=== PATIENT | female | born 1990 | race Caucasian/White ===

== ENCOUNTER 2017-02-22 03:06 | Inpatient (IN) | payer BC ==
[2017-02-22] MEDS ORDERED: RINGER'S SOLUTION,LACTATED 1,000 ML IV ONE (05:30)
[2017-02-22] MEDS ORDERED: OXYTOCIN/DEXTROSE 5%-WATER 30 UNITS/500 ML BAG IV ONE ×2 (05:30→13:34)
[2017-02-22] MEDS ORDERED: LIDOCAINE HCL 50 ML VIAL PERI PRN (05:30)
[2017-02-22] MEDS: DEXTROSE 5%-LACTATED RINGERS 1,000 ML IV PRN ×2 (06:10→07:16)
[2017-02-22] MEDS ORDERED: NALOXONE HCL 1 MG/1 ML SYRG IV PRN (06:16)
[2017-02-22] MEDS ORDERED: ONDANSETRON HCL/PF 2 MG/ML VIAL IV PRN (06:16)
[2017-02-22] MEDS ORDERED: BUPIVACAINE HCL/0.9 % NACL/PF 250 ML EP PRN (06:16)
[2017-02-22] MEDS ORDERED: fentaNYL CITRATE/PF 50 MCG/ML AMPUL IT SCH (06:30)
--- NOTE | 2017-02-22 07:12 | OR ---
Anesthesia Procedure Note - Anesthesia Procedure Note Narrative: Vital Signs - Last Taken Temp 36.9 C 02/22/17 06:42 Pulse 90 02/22/17 06:42 Resp 18 02/22/17 06:42 BP 137/85 02/22/17 06:42 Pulse Ox 100 02/22/17 06:42 02/22/17 07:11 ANESTHESIA PROCEDURE NOTE Date of Procedure: 02/22/2017 Time of procedure: . Performed by: Venkatesh Holland CRNA Fish Straightener: None. Preprocedure diagnosis: Active labor. Post procedure diagnosis: Same. Procedure: Insertion of labor epidural. Indications: The patient is a 27 -year-old prima para female in active labor requesting labor epidural for pain management. Findings: See below. Details of the procedure: The patient was placed in a sitting position. Back was prepped with DuraPrep. Patient was then draped in a sterile fashion. Lidocaine 1% was infiltrated to the skin and subcutaneous tissues at the level of the L3 4 interspace. The epidural space was identified using a 18-gauge Tuohy needle with [id number] technique. 20 mcg fentanyl was given intrathecally using a 27 ga. spinal needle. Epidural catheter was inserted without difficulty. Negative test dose was elicited using 5 mL of 1.5% preservative-free lidocaine plus epinephrine 1 200,000. The epidural catheter was then taped and secured in place. EBL: Minimal. Fluids: N/A. Specimen: N/A. Post procedure condition: The patient tolerated the procedure well. No complications were noted. Thank you for this consultation. Atkinson CRNA
[2017-02-22] MEDS ORDERED: BISACODYL 10 MG SUPP.RECT RC PRN (13:34)
[2017-02-22] MEDS ORDERED: oxyCODONE HCL/ACETAMINOPHEN 1 TAB TABLET PO PRN (13:34)
[2017-02-22] MEDS ORDERED: HYDROCORTISONE 30 APPL TUBE TP PRN (13:34)
[2017-02-22] MEDS ORDERED: SENNOSIDES 8.6 MG TABLET PO PRN (13:34)
[2017-02-22] MEDS ORDERED: BENZOCAINE/MENTHOL 81 SPRAY CAN TP PRN (13:34)
[2017-02-22] MEDS ORDERED: GLYCERIN/WITCH HAZEL LEAF 40 APPL BOX TP PRN (13:34)
--- NOTE | 2017-02-22 13:36 | OR ---
Operative Report - Dictated Report Narrative: Spontaneous vaginal delivery of viable male at 1304 on 02/22/2017 with Apgars 9 and 9, weighing 3339 g in MELYSSA position. Cord clamping delayed approximately 1 minute Placenta delivered complete, intact, with three vessel cord Estimated blood loss: 200 mL Lacerations: Second-degree vaginal laceration (5 cm) repaired with 3-0 Vicryl Rapide.
[2017-02-22] MEDS: oxyCODONE HCL/ACETAMINOPHEN 1 TAB TABLET PO PRN (16:59)
[2017-02-22] MEDS: IBUPROFEN 800 MG TABLET PO PRN (16:59)
[2017-02-22] MEDS: FERROUS SULFATE 325 MG TABLET PO SCH (20:44)
[2017-02-22] MEDS: DOCUSATE SODIUM 100 MG CAPSULE PO SCH (20:44)
[2017-02-23] MEDS: IBUPROFEN 800 MG TABLET PO PRN ×4 (01:14→22:48)
[2017-02-23] MEDS: oxyCODONE HCL/ACETAMINOPHEN 1 TAB TABLET PO PRN ×2 (01:15→22:48)
--- NOTE | 2017-02-23 08:46 | PN ---
Subjective - Date and Time Seen Date: 02/23/17 Time: 08:46 Objective - Vitals Vitals: Last Vital Signs Temp 36.6 C 02/23/17 07:57 Pulse 94 02/23/17 07:57 Resp 16 02/23/17 07:57 BP 108/65 02/23/17 07:57 Pulse Ox 96 02/23/17 07:57 Patient denies complaints. Lochia wnl Abdomen - soft, nontender Uterus - firm, at umbilicus - 1 No calf tenderness Impression: day #1 - s/p spontaneous vaginal delivery. Plan: Continue routine care
[2017-02-23] MEDS: DOCUSATE SODIUM 100 MG CAPSULE PO SCH ×2 (09:34→21:37)
[2017-02-23] MEDS: FERROUS SULFATE 325 MG TABLET PO SCH ×3 (09:34→21:36)
[2017-02-23] MEDS: PRENATAL VITS96/IRON FUM/FOLIC 1 TAB TABLET PO SCH (09:34)
[2017-02-24] MEDS: IBUPROFEN 800 MG TABLET PO PRN (07:01)
[2017-02-24 07:22] VITALS: BP 110/60
[2017-02-24] MEDS: PRENATAL VITS96/IRON FUM/FOLIC 1 TAB TABLET PO SCH (08:41)
[2017-02-24] MEDS: FERROUS SULFATE 325 MG TABLET PO SCH (08:41)
[2017-02-24] MEDS: DOCUSATE SODIUM 100 MG CAPSULE PO SCH (08:41)
--- NOTE | 2017-02-24 09:08 | PN ---
Subjective - Date and Time Seen Date: 02/24/17 Time: 09:07 Objective - Vitals Vitals: Last Vital Signs Temp 37.1 C 02/24/17 06:50 Pulse 81 02/24/17 06:50 Resp 18 02/24/17 06:50 BP 110/60 02/24/17 06:50 Pulse Ox 97 02/24/17 06:50 Patient denies complaints. Lochia wnl Abdomen - soft, nontender Uterus - firm, at umbilicus - 2 No calf tenderness Impression: day #2 - s/p spontaneous vaginal delivery. Plan: Routine discharge instructions
== END 2017-02-24 11:30 | disposition home or self-care (01) | DRG 775 ==
LOC: OBCLINIC 03:06 → OB 04:43 → MS 02-23 06:27
PROVIDERS: ADMIT Obstetrics & Gynecology; ATTEND Obstetrics & Gynecology
PROC: 10E0XZZ Delivery of Products of Conception, External Approach (ICD-10-PCS; principal; 2017-02-22)
PROC: 0KQM0ZZ Repair Perineum Muscle, Open Approach (ICD-10-PCS; 2017-02-22)
PROC: 4A1HXCZ Monitoring of Products of Conception, Cardiac Rate, External Approach (ICD-10-PCS; 2017-02-22)
PROC: 00HU33Z Insertion of Infusion Device into Spinal Canal, Percutaneous Approach (ICD-10-PCS; 2017-02-22)
DX: O99.02 Anemia complicating childbirth (principal); D50.8 Other iron deficiency anemias; O70.1 Second degree perineal laceration during delivery; Z3A.40 40 weeks gestation of pregnancy; Z37.0 Single live birth

== ENCOUNTER 2019-08-06 21:13 | Inpatient (IN) ==
[2019-08-06] MEDS ORDERED: LIDOCAINE HCL 50 ML VIAL ONE (21:46)
[2019-08-06] MEDS ORDERED: LIDOCAINE HCL 50 ML VIAL PERI PRN (22:13)
[2019-08-06] MEDS ORDERED: ONDANSETRON 4 MG TAB.RAPDIS PO PRN (22:13)
[2019-08-06] MEDS ORDERED: OXYTOCIN 10 UNITS/ML SYRG IM ONE (22:15)
--- NOTE | 2019-08-06 22:35 | HP ---
Chief Complaint - Chief Complaint Date of Service: 08/06/19 Time of Service: 22:17 Chief Complaint: contractions History of Present Illness: 29 yo at 37 4/7 weeks presents to L&D complaining of painful contractions since around 1999 tonight. This complicated by anemia and migraines. Rh positive Rubella immune GBS negative Medical History (Last Reviewed 08/06/19 @ 22:28 by Wan Allred DO) Anembryonic (Acute) Blighted ovum Onset Date: 06/30/18 Body piercing Onset Date: Unknown Migraine Onset Date: Unknown Wears glasses Onset Date: Unknown Acute pharyngitis due to infectious mononucleosis Onset Date: 07/27/09 Anemia Onset Date: 08/10/16 w/ Mononucleosis Onset Date: 07/22/09 Otitis media, purulent, acute Onset Date: 07/27/09 UTI (urinary tract infection) Onset Date: Unknown frequent for a 2-4 year time period Contraceptive surveillance Onset Date: 04/19/09 Surgical History: Surgical History (Last Reviewed 08/06/19 @ 22:28 by Wan Allred DO) [place] teeth extracted Onset Date: ~2009 Family History: Family History (Last Reviewed 08/06/19 @ 22:28 by Wan Allred DO) Mother Hx of migraines Father Alive and well Social History: (Last Reviewed 08/06/19 @ 22:28 by Wan Allred DO) Social History: adopted: No alf: No Marital status: household members: spouse, children number of children: 1 current occupational status: other current occupation: [employer] current occupational exposures/hazards: No Highest education level completed: Bachelor's degree Sexually Active: Yes Service: No Tobacco: Smoking Status: Never smoker Alcohol: alcohol intake: current alcohol intake frequency: holiday/special occasion details: No alcohol since + UPT Substance Use: substance use type: does not use Dietary Habits: caffeine: Yes caffeine comment: 1-2/day Type: coffee Exercise: frequency: other Andie/Voodoo: agree to transfusion: Yes Review Of Systems (GEN) - Review of Systems Generalized/Overall Review: Present: No Symptoms Reported EENTM: Present: No Symptoms Reported Respiratory: Present: No Symptoms Reported Cardiac: Present: No Symptoms Reported Genitourinary: Present: Other - contractions, LOF Musculoskeletal: Present: No Symptoms Reported Neurological: Present: No Symptoms Reported Skin: Present: No Symptoms Reported Endocrine: Present: No Symptoms Reported Allergies/Adverse Reactions: Allergies Allergy/AdvReac Type Severity Reaction Status Date / Time No Known Allergies Allergy Verified 08/01/19 14:31 Home Medications: HOME MEDICATIONS [id number] 400 mcg-om3 35 mg-dha 25 mg-epa 5 mg-fish oil chewable tablet 2 tab PO DAILY tab 06/30/18 [Last Taken Unknown] ferrous sulfate 325 mg (65 mg iron) tablet 325 mg PO DAILY 02/16/19 [Last Taken Unknown] magnesium 250 mg tablet 500 mg PO DAILY tab 02/16/19 [Last Taken Unknown] breast pump See Rx Instructions .ROUTE .MEDSUPPLY #1 ea 07/24/19 [Last Taken Unknown] Exam - Exam Vital Signs: Vital Signs - Last Taken Pulse 90 08/06/19 22:13 Resp 22 H 08/06/19 22:13 BP 128/92 H 08/06/19 22:13 Pulse Ox 100 08/06/19 22:13 Constitutional: Present: Alert, Oriented x3, Cooperative, Moderate distress ENT Exam: Present: hearing grossly normal Breasts: Present: Exam deferred Respiratory: Present: lungs clear, no respiratory distress Cardiovascular/Chest: Present: normal peripheral pulses, regular rate, rhythm, no edema Abdomen: Present: soft, no rebound tenderness, other - gravid /Rectal: Present: Other - Cervix - 7-8/95/-1 Extremity: Present: no pedal edema, no calf tenderness Skin Exam: Present: normal color, warm/dry, no cyanosis Neurologic: Present: normal mood/affect Appearance: Present: appropriate appearance Eye contact: Present: cooperative, good eye contact, increased rate of speech Thoughts: Present: normal thought pattern, normal mood /affect Assessment/Plan - Assessment/Plan (1) Labor established Assessment: Admitted for labor, quickly progressed to complete and delivered a viable healthy boy - see operative note for details. Routine PP management. Problem: Acute (2) Precipitate labor, with delivery Problem: Acute (3) Anemia Problem: Acute Qualifiers: Anemia type: iron deficiency Iron deficiency anemia type: inadequate dietary iron intake Qualified Code(s): D50.8 - Other iron deficiency anemias
--- NOTE | 2019-08-06 22:37 | OR ---
Operative Report - Dictated Report Narrative: Precipitous spontaneous vaginal delivery of vigorously crying viable male at 2137 on 08/06/2019 with Apgars 9 and 9, weighing 2951 g in MELYSSA position with membrane rupture (floor bag) at time of delivery of head. Cord clamping delayed approximately 1 minute Placenta delivered complete, intact, with three vessel cord Estimated blood loss: Less than 50 ml Anesthesia: 1% lidocaine local Lacerations: Second-degree vaginal laceration repaired with 3-0 Vicryl Rapide Because of precipitous labor/delivery, IV was not yet established so patient received 10 units of Pitocin IM x1.
[2019-08-06] MEDS ORDERED: GLYCERIN/WITCH HAZEL LEAF 40 APPL BOX TP PRN (22:39)
[2019-08-06] MEDS ORDERED: ACETAMINOPHEN 325 MG TABLET PO PRN (22:39)
[2019-08-06] MEDS ORDERED: SENNOSIDES 8.6 MG TABLET PO PRN (22:39)
[2019-08-06] MEDS ORDERED: BENZOCAINE/MENTHOL 81 SPRAY CAN TP PRN (22:39)
[2019-08-06] MEDS ORDERED: HYDROCORTISONE 30 APPL TUBE TP PRN (22:39)
[2019-08-06] MEDS ORDERED: BISACODYL 10 MG SUPP.RECT RC PRN (22:39)
[2019-08-06] MEDS ORDERED: NON-FORMULARY 1 DOSE DOSE (Breast Pump 0 UNIT) SCH (22:45)
[2019-08-06] MEDS: IBUPROFEN 800 MG TABLET PO PRN (22:59)
[2019-08-06] MEDS: oxyCODONE HCL/ACETAMINOPHEN 1 TAB TABLET PO PRN (22:59)
[2019-08-07] MEDS: IBUPROFEN 800 MG TABLET PO PRN ×2 (06:56→14:33)
[2019-08-07] MEDS ORDERED: FERROUS SULFATE 325 MG TABLET PO SCH (09:00)
[2019-08-07] MEDS ORDERED: MAGNESIUM OXIDE 400 MG TABLET PO SCH (09:00)
[2019-08-07] MEDS ORDERED: PRENATAL VITS96/IRON FUM/FOLIC 1 TAB TABLET PO SCH (09:00)
[2019-08-07] MEDS: DOCUSATE SODIUM 100 MG CAPSULE PO SCH ×2 (09:18→20:24)
--- NOTE | 2019-08-07 09:38 | PN ---
Subjective - Date and Time Seen Date: 08/07/19 Time: 09:37 Objective - Vitals Vitals: Last Vital Signs Temp 36.1 C 08/07/19 06:58 Pulse 70 08/07/19 06:58 Resp 16 08/07/19 06:58 BP 115/72 08/07/19 06:58 Pulse Ox 96 08/07/19 06:58 Patient denies complaints. Lochia wnl abdomen - soft, nontender Uterus -firm, at umbilicus - 1 no calf tenderness Impression: day #1 - s/p spontaneous vaginal delivery. Plan: Continue routine care Assessment/Plan - Problems/Diagnosis (1) Labor established Problem: Acute (2) Precipitate labor, with delivery Problem: Acute (3) Anemia Problem: Acute Qualifiers: Anemia type: iron deficiency Iron deficiency anemia type: inadequate dietary iron intake Qualified Code(s): D50.8 - Other iron deficiency anemias
[2019-08-08 00:46] VITALS: BP 106/63
[2019-08-08] MEDS: IBUPROFEN 800 MG TABLET PO PRN (06:16)
[2019-08-08] MEDS: oxyCODONE HCL/ACETAMINOPHEN 1 TAB TABLET PO PRN (06:17)
--- NOTE | 2019-08-08 12:33 | PN ---
Subjective - Date and Time Seen Date: 08/08/19 Time: 12:32 Objective - Vitals Vitals: Last Vital Signs Temp 35.9 C L 08/08/19 07:50 Pulse 66 08/08/19 07:50 Resp 18 08/08/19 07:50 BP 106/63 08/08/19 00:45 Pulse Ox 98 08/08/19 07:50 Patient denies complaints. Breast-feeding well. Lochia wnl abdomen - soft, nontender Uterus -firm, at umbilicus - 2 no calf tenderness Impression: day #2 - s/p spontaneous vaginal delivery. Plan: Routine discharge instructions Assessment/Plan - Problems/Diagnosis (1) Labor established Problem: Acute (2) Precipitate labor, with delivery Problem: Acute (3) Anemia Problem: Acute Qualifiers: Anemia type: iron deficiency Iron deficiency anemia type: inadequate dietary iron intake Qualified Code(s): D50.8 - Other iron deficiency anemias
== END 2019-08-08 10:30 | disposition home or self-care (01) | DRG 807 ==
LOC: OBCLINIC 21:13 → OB 21:46 → UNDODISIN 08-08 12:57
PROVIDERS: ADMIT Obstetrics & Gynecology; ATTEND Obstetrics & Gynecology
CPT/HCPCS: 59025